=== PATIENT | male | born 1970 | race Hispanic/Latino ===

== ENCOUNTER 2019-05-20 13:41 | Emergency (ER) | payer OTHER ==
[~2019-05-20 13:41] MED LIST: ACET1TAB12 PO; PRAV10TA39 PO
[2019-05-20] MEDS ORDERED: ONDANSETRON HCL 4 MG/2 ML VIAL ONE (14:59)
[2019-05-20] MEDS ORDERED: MORPHINE SULFATE 4 MG/1ML SYG ONE (14:59)
== END 2019-05-20 17:08 | disposition home or self-care (01) ==
LOC: EDH 13:41
DX: J01.90 Acute sinusitis, unspecified (principal); E11.9 Type 2 diabetes mellitus without complications; I10 Essential (primary) hypertension; E78.5 Hyperlipidemia, unspecified
CPT/HCPCS: 70450; 70486; 96374; 96375; 99284; J2270; J2405